=== PATIENT | female | born 1970 | race African-American/Black ===

== ENCOUNTER 2016-11-17 11:42 | Emergency (ER) | payer MEDICAID ==
[~2016-11-17] VITALS: Ht 162.6 cm; Wt 58.1 kg
[~2016-11-17 11:42] MED LIST: QUET300T1 PO
[2016-11-17 12:38] VITALS: BP 147/84
--- NOTE | 2016-11-17 15:45 | NUR ---
PATIENT LEFT WITHOUT BEING SEEN BY DR. GARCIA. NO FURTHER CARE PROVIDED FOR PATIENT.
== END 2016-11-17 15:45 | disposition left against medical advice (07) ==
LOC: MED 11:42
DX: R10.30 Lower abdominal pain, unspecified (principal); Z53.21 Procedure and treatment not carried out due to patient leaving prior to being seen by health care provider